=== PATIENT | female | born 2000 | race Caucasian/White ===

== ENCOUNTER 2018-07-13 21:51 | Emergency (ER) | payer OTHER ==
[2018-07-13] MEDS ORDERED: Dexamethasone 10 MG/ML VIAL ONE (22:36)
[2018-07-13] MEDS ORDERED: Acetaminophen 500 MG TAB ONE (22:36)
[2018-07-13] MEDS ORDERED: Ibuprofen 800 MG TAB ONE (22:36)
== END 2018-07-13 23:04 | disposition home or self-care (01) ==
LOC: ERS 21:51
DX: J02.9 Acute pharyngitis, unspecified (principal); F41.9 Anxiety disorder, unspecified; Z79.01 Long term (current) use of anticoagulants; Z79.899 Other long term (current) drug therapy
CPT/HCPCS: 87081; 87430; 99282; J1100

== ENCOUNTER 2018-07-14 19:04 | Emergency (ER) | payer OTHER ==
--- NOTE | 2018-07-14 19:36 | RAD ---
TWO VIEW CHEST: 07/14/18 HISTORY: Chest pain. Lung elaine are well aerated and clear. Heart and mediastinum appear normal. Osseous structures appea r normal. IMPRESSION: Negative chest. POS: [facility]
[2018-07-14] MEDS ORDERED: Morphine 10 MG/ML VIAL ONE (19:55)
[2018-07-14] MEDS ORDERED: Ondansetron PF 4 MG/2 ML Vial ONE (19:55)
[2018-07-14 20:09] LABS: #Basophils 0.1 thou/uL (0.0-0.2); #Lymphocytes 1.2 thou/uL (1.20-3.40); #Monocytes 1.2 thou/uL (0.11-0.59); #Neutrophils 10.2 thou/uL (1.40-6.50); %Basophils 0.4 % (0.0-1.0); %Eosinophils 0.1 % (0.0-10.0); %Lymphocytes 9.8 % (28.0-48.0); %Monocytes 9.4 % (0.0-4.0); %Neutrophils 80.3 % (31.0-61.0); Mean Corpuscular HGB CONC 33.2 g/dL (32.0-36.0); Mean Corpuscular Hemoglobin 28.1 pg (25.0-35.0); Mean Corpuscular Volume 84.5 fL (78.0-98.0); Mean Platelet Volume 8.4 fL (7.4-10.4); Platelet Count 238 thou/uL (130-400); RBC Distribution Width 12.5 % (11.5-14.5); Red Blood Cell (RBC) Count 4.98 mill/uL (4.00-5.20); White Blood Cell (WBC) Count 12.7 thou/uL (4.8-10.8)
[2018-07-14 20:30] LABS: ALT (SGPT) 8 U/L (8-55); AST (SGOT) 11 U/L (5-34); Albumin 4.5 g/dL (3.5-5.0); Alkaline Phosphatase 54 U/L (40-150); Anion Gap 15 mmol/L (10-20); BUN (Urea Nitrogen) 8 mg/dL (7.0-18.7); Bilirubin, Total 0.5 mg/dL (0.2-1.2); Calc. Creatinine Clearance 0 mL/min (70-130); Calcium 10.1 mg/dL (7.8-10.44); Carbon Dioxide 21 mmol/L (22-29); Chloride 106 mmol/L (98-107); Estimated GFR-MDRD Greater than 90; Globulin 3.7 g/dL (2.4-3.5); Glucose 97 mg/dL (70-105); Lipase Less than 4 U/L (8-78); Potassium 3.4 mmol/L (3.5-5.1); Protein, Total 8.2 g/dL (6.0-8.3); Sodium 139 mmol/L (136-145)
[2018-07-14 20:45] LABS: BHCG - Serum Negative (NEGATIVE); Pregs Control Background? CLEAR/WHITE (CLR/WHITE); Pregs Control Bar Appear? YES (CONTROL BAR)
--- NOTE | 2018-07-14 21:11 | CT ---
CTA CHEST AND ABDOMEN PER AORTOGRAM: 07/14/18 Multiple axial tomograms obtained through the chest and abdomen with aortogram enhancement. Multiplan ar reconstruction and 3D postprocessing obtained. INDICATIONS: Chest pain. Assess for aortic dissection. FINDINGS: Thoracic aorta shows no evidence of aneurysmal dilatation. No evidence of dissection. Abdominal aorta shows no evidence of aneurysmal dilatation. No evidence of dissection. The aortic bra nches appear normal. Pulmonary arteries are opacified and there is no evidence of pulmonary embolus. The lung elaine are c lear. No infiltrate. Mediastinum unremarkable. Liver, spleen, pancreas and kidneys unremarkable. Bowel loops appear unremarkable as visualized. IMPRESSION: 1. No evidence of thoracic or abdominal aortic aneurysm or dissection. \ 2. No acute process identified. POS: [facility]
[2018-07-14] MEDS ORDERED: Ketorolac Tromethamine 30 MG/ML VIAL ONE (22:34)
[2018-07-14] MEDS ORDERED: Dexamethasone 4 mg/ml Vial ONE (22:34)
--- NOTE | 2018-07-14 23:07 | RAD ---
NECK SOFT TISSUES: 07/14/18 Two views. INDICATIONS: Pain in neck. Epiglottis appears normal. Airway is patent. Prevertebral space appears normal. No foreign body seen . IMPRESSION: Unremarkable soft tissue neck. POS: [facility]
--- NOTE | 2018-07-17 12:28 | EKG ---
Test Reason : Blood Pressure : / mmHG Vent. Rate : 088 BPM Atrial Rate : 088 BPM P-R Int : 152 ms QRS Dur : 084 ms QT Int : 324 ms P-R-T Axes : 060 082 000 degrees QTc Int : 392 ms Normal sinus rhythm with sinus arrhythmia Normal ECG Confirmed by NEO BOOGIE MD ([id number]), editor map ADIS CLEMONS ([id number]) on 07/17/2018 12:28:02 PM Referred By: Confirmed By:NEO BOOGIE MD
== END 2018-07-15 00:04 | disposition home or self-care (01) ==
LOC: ERS 19:04
DX: R07.89 Other chest pain (principal); J02.9 Acute pharyngitis, unspecified; F41.9 Anxiety disorder, unspecified; Z79.899 Other long term (current) drug therapy
CPT/HCPCS: 36415; 70360; 71046; 71275; 80053; 83690; 84484; 84703; 85025; 85379; 93005; 96361; 96374; 96375; J1100; J1885; J2270; J2405

== ENCOUNTER 2018-08-23 16:33 | Emergency (ER) | payer OTHER ==
[2018-08-23 17:10] LABS: #Lymphocytes 0.5 thou/uL (1.20-3.40); #Monocytes 0.6 thou/uL (0.11-0.59); %Basophils 0.3 % (0.0-1.0); %Eosinophils 0.3 % (0.0-10.0); %Lymphocytes 5.9 % (28.0-48.0); %Monocytes 6.5 % (0.0-4.0); %Neutrophils 87.1 % (31.0-61.0); Hemoglobin 13.1 g/dL (12.0-16.0); Mean Corpuscular HGB CONC 32.2 g/dL (32.0-36.0); Mean Corpuscular Hemoglobin 28.6 pg (25.0-35.0); Mean Corpuscular Volume 88.8 fL (78.0-98.0); Mean Platelet Volume 8.8 fL (7.4-10.4); Platelet Count 153 thou/uL (130-400); RBC Distribution Width 12.2 % (11.5-14.5); Red Blood Cell (RBC) Count 4.59 mill/uL (4.00-5.20); White Blood Cell (WBC) Count 9.2 thou/uL (4.8-10.8)
[2018-08-23 17:27] LABS: BHCG - Serum Negative (NEGATIVE); Pregs Control Background? CLEAR/WHITE (CLR/WHITE); Pregs Control Bar Appear? YES (CONTROL BAR)
[2018-08-23 17:38] LABS: ALT (SGPT) Less than 7 U/L (8-55); AST (SGOT) 12 U/L (5-34); Albumin 3.7 g/dL (3.5-5.0); Alkaline Phosphatase 33 U/L (40-150); Anion Gap 10 mmol/L (10-20); BUN (Urea Nitrogen) 9 mg/dL (7.0-18.7); Bilirubin, Total 0.5 mg/dL (0.2-1.2); Calc. Creatinine Clearance 0 mL/min (70-130); Calcium 8.3 mg/dL (7.8-10.44); Carbon Dioxide 22 mmol/L (22-29); Chloride 109 mmol/L (98-107); Estimated GFR-MDRD Greater than 90; Globulin 2.8 g/dL (2.4-3.5); Glucose 101 mg/dL (70-105); Potassium 3.7 mmol/L (3.5-5.1); Protein, Total 6.5 g/dL (6.0-8.3); Sodium 137 mmol/L (136-145)
[2018-08-23 17:55] LABS: Bilirubin Negative (Negative); Blood, Urine Negative (Negative); Clarity CLEAR (Clear); Glucose, Urine (Dipstick) Negative (Negative); Leukocyte Small (Negative); Nitrite Negative (Negative); Protein, Urine (Dipstick) Negative (Neg-Trace); Specific Gravity, Urine 1.025 (1.002-1.036)
[2018-08-23 17:59] LABS: Bacteria/HPF Rare-Few HPF (None Seen); Hyaline Casts/LPF 4-6 HYALINE CAST LPF (0-3 Hyaline); Pathc Cast-AUWi Flag 0.14 (0-2.49); RBC/HPF 0-3 HPF (0-3)
[2018-08-23 18:13] LABS: Transitional Epithelial 0-3 HPF (0-3)
== END 2018-08-23 18:56 | disposition home or self-care (01) ==
LOC: ERS 16:33
DX: F45.8 Other somatoform disorders (principal); F41.9 Anxiety disorder, unspecified; Z79.899 Other long term (current) drug therapy
CPT/HCPCS: 36415; 80053; 81003; 81015; 84703; 85025; 87086; 99284

== ENCOUNTER → 2021-03-30 | Day surgery (SDC) | payer OTHER, BC ==
[2021-03-31 00:13] LABS: SARS-CoV-2 NAA Rapid Test DETECTED (NotDetected)
== END ==
LOC: EDSTATUS 13:26 → ER/OP 22:56
PROVIDERS: ATTEND Pathology Anatomic Pathology & Clinical Pathology
DX: S82.302B Unspecified fracture of lower end of left tibia, initial encounter for open fracture type I or II (principal); S82.832B Other fracture of upper and lower end of left fibula, initial encounter for open fracture type I or II; Z20.822 Contact with and (suspected) exposure to COVID-19; V47.5XXA Car driver injured in collision with fixed or stationary object in traffic accident, initial encounter
CPT/HCPCS: U0002

== ENCOUNTER 2023-04-13 20:42 | Emergency (ER) | payer BC, OTHER | END 2023-04-13 22:31 | disposition home or self-care (01) | LOC: ERS 20:42 | DX: S09.90XA Unspecified injury of head, initial encounter (principal); S16.1XXA Strain of muscle, fascia and tendon at neck level, initial encounter; V89.2XXA Person injured in unspecified motor-vehicle accident, traffic, initial encounter | CPT/HCPCS: 70450; 71045; 72125 ==

== ENCOUNTER 2024-01-05 08:04 | Outpatient (CLI) | payer BC ==
[2024-01-05] MEDS ORDERED: Magnevist 469MG/ML 20 ML VIAL ONE (12:35)
== END 2024-01-05 08:05 | disposition home or self-care (01) ==
LOC: BICMRI 08:04
PROVIDERS: ATTEND Family Medicine
DX: R51.9 Headache, unspecified (principal)
CPT/HCPCS: 70553; A9579